=== PATIENT | female | born 1950 | race Caucasian/White ===

== ENCOUNTER 2020-06-21 07:57 | Day surgery (SDC) | payer MEDICARE, BC ==
[2020-06-16 13:32] VITALS: BMI 33.8
[~2020-06-21 07:57] MED LIST: LIDOCAINE 1% (10MG/ML) FOR IV START INTRADERMA PRN
[2020-06-21 08:17] VITALS: TEMP 97.5
[2020-06-21] MEDS: LACTATED RINGERS 1,000 ML IV SCH ×2 (08:26→08:44)
[2020-06-21] MEDS ORDERED: PROPOFOL 10 MG/ML 20 ML VIAL IV ONE (08:44)
--- NOTE | 2020-06-21 09:00 | P.PCN ---
Date of Procedure: 06/21/20 Procedure(s) Performed: BRIEF HISTORY: Patient is a 62-year-old pleasant white female scheduled for an elective colonoscopy as a part of screening for colorectal neoplasia. PROCEDURE PERFORMED: Colonoscopy with biopsy. PREOPERATIVE DIAGNOSIS: Screening for colon cancer. IV sedation per Anesthesia. PROCEDURE: After informed consent was obtained, the patient, was brought into the endoscopy unit. IV sedation was administered by Anesthesia under continuous monitoring. Digital rectal examination was normal. Initially the Olympus CF-160 flexible video colonoscope was then inserted in the rectum, gradually advanced into the cecum without any difficulty. Careful examination was performed as the scope was gradually being withdrawn. Ileocecal valve and the appendiceal orifice were visualized and appeared normal. Prep was excellent. Mucosa of the cecum, ascending colon, transverse colon, descending colon, sigmoid colon, and rectum appeared normal. In the distal rectum there were 2 small 3 mm polyps removed by cold biopsy. Retroflexion was performed in the rectum and no lesions were seen. The patient tolerated the procedure well. IMPRESSION: 3 mm 2 rectal polyps status post removal by cold biopsy Rest of the colon appeared RECOMMENDATIONS: Findings of this examination were discussed with the patient as well as her family. She was advised to follow with the biopsy results. If the biopsy shows an adenoma she can have a repeat colonoscopy in 5 years. 70
[2020-06-21 09:17] VITALS: BP 117/74; PULSE 69; RESP 18
== END 2020-06-21 09:40 | disposition home or self-care (01) ==
LOC: ORWHC2ENDO 07:57
PROVIDERS: ATTEND Internal Medicine Gastroenterology
DX: Z12.11 Encounter for screening for malignant neoplasm of colon (principal); K62.1 Rectal polyp; Z86.010 Personal history of colon polyps; E78.5 Hyperlipidemia, unspecified; J45.909 Unspecified asthma, uncomplicated; E07.9 Disorder of thyroid, unspecified; F32.9 Major depressive disorder, single episode, unspecified; G43.909 Migraine, unspecified, not intractable, without status migrainosus; Z88.5 Allergy status to narcotic agent; Z88.1 Allergy status to other antibiotic agents; Z79.899 Other long term (current) drug therapy; Z79.51 Long term (current) use of inhaled steroids; Z79.890 Hormone replacement therapy; Z98.890 Other specified postprocedural states; Z96.651 Presence of right artificial knee joint; Z90.710 Acquired absence of both cervix and uterus; Z86.69 Personal history of other diseases of the nervous system and sense organs
CPT/HCPCS: 88305; 45380; J2704

== ENCOUNTER → 2021-02-26 | Outpatient (CLI) | payer MEDICARE, BC ==
--- NOTE | 2021-02-26 11:19 | XR ---
EXAMINATION TYPE: XR chest 2V DATE OF EXAM: 02/26/2021 COMPARISON: NONE HISTORY: Wheezing TECHNIQUE: Frontal and lateral views of the chest are obtained. FINDINGS: There is no focal air space opacity, pleural effusion, or pneumothorax seen. The cardiac silhouette size is within normal limits. The osseous structures are intact. IMPRESSION: No acute cardiopulmonary process.
--- NOTE | 2021-02-26 11:23 | XR ---
EXAMINATION TYPE: XR lumbosacral spine min 4V DATE OF EXAM: 02/26/2021 CLINICAL HISTORY: Back pain TECHNIQUE: Frontal, lateral, and oblique images of the lumbar spine are obtained. COMPARISON: None FINDINGS: There are 5 lumbar type vertebral bodies identified. The lumbar spine shows satisfactory alignment without evidence of acute fracture or dislocation. There is multilevel endplate sclerosis a nd osteophytosis with facet arthropathy. Vascular calcifications are seen. 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
--- NOTE | 2021-02-28 13:43 | MM ---
Reason for exam: screening (asymptomatic). Last mammogram was performed 12 years and 10 months ago. History: Patient is postmenopausal. Family history of breast cancer in cousin and breast cancer in cousin at age 40. Benign stereotactic core biopsy of the right breast, September 12, 2004. Took hormonal contraceptives for 4 years. Took estrogen for 8 years 6 months beginning at age 49. Physical Findings: A clinical breast exam by your physician is recommended on an annual basis and results should be correlated with mammographic findings. MG 3D Screening Mammo W/Cad Bilateral CC and MLO view(s) were taken. Prior study comparison: September 27, 2019, mammogram, performed at [place]. September 25, 2018, mammogram, performed at [place]. April 18, 2008, left breast mammogram dig work up. April 12, 2008, bilateral digital screening mammogram. The breast tissue is heterogeneously dense. This may lower the sensitivity of mammography. Previous mammotome biopsy in the right and left breast. No significant changes when compared with prior studies. ASSESSMENT: Benign, BI-RAD 2 RECOMMENDATION: Routine screening mammogram of both breasts in 1 year.
== END | disposition home or self-care (01) ==
LOC: RADMAMWWP 09:59
PROVIDERS: ATTEND Family Medicine
DX: Z12.31 Encounter for screening mammogram for malignant neoplasm of breast (principal); M51.36 Other intervertebral disc degeneration, lumbar region; M47.816 Spondylosis without myelopathy or radiculopathy, lumbar region; R06.2 Wheezing; Z78.0 Asymptomatic menopausal state; Z80.3 Family history of malignant neoplasm of breast
CPT/HCPCS: 71046; 72110; 77063; 77067

== ENCOUNTER → 2022-02-27 | Outpatient (CLI) | payer MEDICARE, BC ==
--- NOTE | 2022-02-28 11:09 | MM ---
Reason for Exam: Screening (asymptomatic). Last screening mammogram was performed 12 month(s) ago. Patient History: Menarche at age 17. First Full-Term at age 23. Hysterectomy at age 37. Postmenopausal. Estrogen, starting at age 49 for 8 years, 6 months. Patient used Hormonal Contraceptives for 4 years. 09/12/2004, Benign Stereotactic Core Biopsy on the right side. Maternal cousin had breast cancer. Maternal cousin had breast cancer, age 40. Risk Values: Ruby 5 year model risk: 1.7%. NCI Lifetime model risk: 5.1%. Prior Study Comparison: 09/25/2018 Screening Mammogram, [place]. 09/27/2019 Screening Mammogram, [place]. 02/26/2021 Bilateral Screening Mammogram, [facility]. Tissue Density: The breast tissue is heterogeneously dense. This may lower the sensitivity of mammography. Findings: Analyzed By CAD. There is no suspicious group of microcalcifications or new suspicious mass in either breast. Overall Assessment: Benign, BI-RAD 2 Management: Screening Mammogram of both breasts in 1 year. A clinical breast exam by your physician is recommended on an annual basis and results should be correlated with mammographic findings. Electronically signed and approved by: Bon Francisco M.D. Radiologis
== END | disposition home or self-care (01) ==
LOC: RADMAMWWP 09:58
PROVIDERS: ATTEND Family Medicine
DX: Z12.31 Encounter for screening mammogram for malignant neoplasm of breast (principal); Z78.0 Asymptomatic menopausal state; Z80.3 Family history of malignant neoplasm of breast
CPT/HCPCS: 77063; 77067

== ENCOUNTER → 2022-04-08 | Outpatient (CLI) | payer MEDICARE, BC ==
--- NOTE | 2022-04-08 14:55 | US ---
EXAMINATION TYPE: US venous doppler duplex LE DATE OF EXAM: 04/08/2022 12:35 PM COMPARISON: NONE CLINICAL HISTORY: M79.662 PAIN, I87.2 VENOUS INSUFFICIENCY. Patient had a surgery done left leg for v enous insufficiency. Pain. No hx DVT. Not on blood thinners. No swelling. SIDE PERFORMED: Bilateral TECHNIQUE: The lower extremity deep venous system is examined utilizing real time linear array sonog yuri with graded compression, doppler sonography and color-flow sonography. VESSELS IMAGED: Common Femoral Vein Deep Femoral Vein Greater Saphenous Vein * Femoral Vein Popliteal Vein Small Saphenous Vein * Proximal Calf Veins (* superficial vessels) Right Leg: Negative for DVT Left Leg: Negative for DVT Grayscale, color doppler, spectral doppler imaging performed of the deep veins of the bilateral lower extremities. There is normal flow, compressibility, vascular waveforms. IMPRESSION: No ultrasound evidence for acute DVT in either lower extremity.
== END | disposition home or self-care (01) ==
LOC: RADUSWWP 12:06
PROVIDERS: ATTEND Surgery
DX: M79.662 Pain in left lower leg (principal); I87.2 Venous insufficiency (chronic) (peripheral)
CPT/HCPCS: 93970

== ENCOUNTER → 2023-04-23 | Outpatient (CLI) | payer MEDICARE, BC ==
--- NOTE | 2023-04-24 09:43 | MM ---
Reason for Exam: Screening (asymptomatic). Last mammogram was performed 1 year(s) and 2 month(s) ago. Patient History: Menarche at age 17. First Full-Term at age 23. Hysterectomy at age 37. Postmenopausal. Estrogen, starting at age 49 for 8 years, 6 months. Patient used Hormonal Contraceptives for 4 years. 09/12/2004, Benign Stereotactic Core Biopsy on the right side. Maternal cousin had breast cancer. Maternal cousin had breast cancer, age 40. Risk Values: Ruby 5 year model risk: 1.7%. NCI Lifetime model risk: 4.7%. Prior Study Comparison: 09/27/2019 Screening Mammogram, [place]. 02/26/2021 Bilateral Screening Mammogram, [facility]. 02/27/2022 Bilateral MG 3D screening mammo w/cad, [facility]. Tissue Density: The breast tissue is heterogeneously dense. This may lower the sensitivity of mammography. Findings: Analyzed By CAD. There is no suspicious group of microcalcifications or new suspicious mass in either breast. Biopsy clips within both breasts. Overall Assessment: Benign, BI-RAD 2 Management: Screening Mammogram of both breasts in 1 year. A clinical breast exam by your physician is recommended on an annual basis and results should be correlated with mammographic findings. Note on Ruby scores and lifetime risk: 1. A Ruby score greater than 3% is considered moderate risk. If this is the case, consider specialist referral to assess eligibility for a risk reducing agent. If overall lifetime risk for the development of breast cancer is 20% or higher, the patient may qualify for future screening with alternating mammogram and breast MRI. Electronically signed and approved by: Sina Vazquez D.O.
--- NOTE | 2023-04-24 09:47 | BD ---
EXAMINATION TYPE: Axial Bone Density DATE OF EXAM: 04/23/2023 CLINICAL HISTORY: 73 years old Female. ICD-10 CODE: N95.1 MENOPAUSAL AND FEMALE CL Height: 62.5 in Weight: 192 lbs FRAX RISK QUESTIONS: Secondary Osteoporosis: 3. Menopause before 45: partial hysterectomy age 32 RISK FACTORS HISTORY OF: Family History of Osteoporosis: yes maternal grandmother Active: yes Diet low in dairy products/other sources of calcium: yes Postmenopausal woman: partial hysterectomy age 32 Take estrogen and/or progesterone medications: not now How lon years MEDICATIONS: Thyroid Medications: yes Which medication: Levothyroxine How Lon+ years Additional Medications: blood pressure meds, depression meds, migraine med injections, cholesterol me ds EXAM MEASUREMENTS: Bone mineral densitometry was performed using the [employer] System. Bone mineral density as measured about the Lumbar spine is: ----- L1-L4(G/cm2): 1.105 T Score Values are as follows: ----- L1: -1.5 ----- L2: -1.2 ----- L3: -0.5 ----- L4: 0.3 ----- L1-L4: -0.6 Z Score Values are as follows: ----- L1: -0.6 ----- L2: -0.3 ----- L3: 0.4 ----- L4: 1.2 ----- L1-L4: 0.3 Bone mineral density has: Decreased -5.8% since study of: 08/22/2004 Bone mineral density about the R hip (g/cm2): 0.955 Bone mineral density about the L hip (g/cm2): 0.940 T Score values are as follows: -----R Neck: -1.0 -----L Neck: -1.4 -----R Total: -0.4 -----L Total: -0.5 Z Score values are as follows: -----R Neck: 0.2 -----L Neck: -0.2 -----R Total: 0.6 -----L Total: 0.5 Bone mineral density has: Decreased -2.3% since study of: 08/22/2004 FRAX%s: The graph provided illustrates a 9.3% chance for a major osteoporotic fx and a 1.3% chance fo r the hips probability for fx in 10 years time. IMPRESSION: Osteopenia (T Score between -2.5 and -1). There is slightly increased risk of fracture and the patient may be considered for treatment. Re-Screen 2-5 years. NOTE: T-SCORE=SD OF THE YOUNG ADULT MEAN.
== END | disposition home or self-care (01) ==
LOC: RADMAMWWP 15:48
PROVIDERS: ATTEND Family Medicine
DX: Z12.31 Encounter for screening mammogram for malignant neoplasm of breast (principal); M85.89 Other specified disorders of bone density and structure, multiple sites; Z78.0 Asymptomatic menopausal state; Z80.3 Family history of malignant neoplasm of breast
CPT/HCPCS: 77063; 77067; 77080

== ENCOUNTER → 2024-06-02 | Outpatient (CLI) | payer MEDICARE ==
--- NOTE | 2024-06-06 21:42 | MM ---
Reason for Exam: Screening (asymptomatic). Last mammogram was performed 1 year(s) and 1 month(s) ago. Patient History: Menarche at age 17. First Full-Term at age 23. Hysterectomy at age 37. Postmenopausal. Estrogen, starting at age 49 for 8 years, 6 months. Patient used Hormonal Contraceptives for 4 years. 09/12/2004, Benign Stereotactic Core Biopsy on the right side. Maternal cousin had breast cancer. Maternal cousin had breast cancer, age 40. Risk Values: Ruby 5 year model risk: 1.7%. NCI Lifetime model risk: 4.4%. Prior Study Comparison: 02/26/2021 Bilateral Screening Mammogram, [facility]. 02/27/2022 Bilateral MG 3D screening mammo w/cad, [facility]. 04/23/2023 Bilateral MG 3D screening mammo w/cad, [facility]. Tissue Density: The breasts are heterogeneously dense, which may obscure small masses. Findings: Analyzed By CAD. The pattern is symmetrical. Benign calcifications are within the bilateral breasts. Or markers are within the bilateral breasts. No significant interval change is evident. No suspicious groups of microcalcifications, spiculated or lobular masses, architectural distortion or other secondary signs of malignancy are mammographically apparent. Overall Assessment: Benign, BI-RAD 2 Management: Screening Mammogram of both breasts in 1 year. A negative mammogram report should not preclude additional follow up of suspicious palpable abnormalities. Patient should continue monthly self breast exam. A clinical breast exam by your physician is recommended on an annual basis and results should be correlated with mammographic findings. Note on Ruby scores and lifetime risk: 1. A Ruby score greater than 3% is considered moderate risk. If this is the case, consider specialist referral to assess eligibility for a risk reducing agent. 2. If overall lifetime risk for the development of breast cancer is 20% or higher, the patient may qualify for future screening with alternating mammogram and breast MRI. [facility], , 06/06/2024 9:39 PM. Electronically signed and approved by: Ladarius Scott D.O. Radiologis
== END | disposition home or self-care (01) ==
LOC: RADMAMWWP 09:29
PROVIDERS: ATTEND Family Medicine
DX: Z12.31 Encounter for screening mammogram for malignant neoplasm of breast
CPT/HCPCS: 77063; 77067